=== PATIENT | female | born 1940 | race Two or more races ===

== ENCOUNTER 2018-05-19 10:28 | Emergency (ER) | payer OTHER ==
[~2018-05-19] VITALS: Ht 162.6 cm; Wt 74.8 kg
[~2018-05-19 10:28] MED LIST: ANTIVERT25 M1 PO; CATAFLAM50 MG PO; KETO10TA2 PO; ORPH100T PO; SYNTHROID100 MCG PO; SYNTHROID50 MCG; TRIAMTERENE-HCT1 TA2 PO
== END 2018-05-19 14:17 | disposition home or self-care (01) ==
LOC: ER 10:28
DX: B34.9 Viral infection, unspecified (principal); J11.1 Influenza due to unidentified influenza virus with other respiratory manifestations